=== PATIENT | female | born 1995 | race American Indian/Alaskan Native ===

== ENCOUNTER 2017-04-06 10:20 | Emergency (ER) | payer SELFPAY ==
[2017-04-06 10:40] VITALS: BP 116/70
--- NOTE | 2017-04-06 13:39 | Emergency Department Report ---
ED Headache HPI - General Chief Complaint: Headache Stated Complaint: HEADACHE, DIZZY, EYE PAIN Time Seen by Provider: 04/06/17 13:35 Source: patient - History of Present Illness Timing/Duration: 1 week, constant, decreasing Quality: mild Recent Head Trauma: no recent headache/trauma Modifying Factors: improves with: cold therapy, exposure to light Associated Symptoms: facial pain, nasal congestion, nasal drainage Allergies/Adverse Reactions: Allergies No Known Allergies Allergy (Unverified 04/06/17 10:35) Home Medications: Ambulatory Orders Amoxicillin [Amoxicillin TAB] 875 mg PO BID #14 tablet 04/06/17 Meclizine [Antivert] 25 mg PO TID PRN #30 tablet 04/06/17 ED Review of Systems ROS: Stated complaint: HEADACHE, DIZZY, EYE PAIN Other details as noted in HPI Comment: All other systems reviewed and negative Eyes: eye pain ENT: ear pain Respiratory: cough Gastrointestinal: denies: abdominal pain, diarrhea, constipation ED Past Medical Hx - Past Medical History Previous Medical History?: Yes Additional medical history: Vaginal dleivery 05-28-2016 - Surgical History Past Surgical History?: No - Social History Smoking Status: Never Smoker Substance Use Type: Alcohol, Non Opiate Pain - Medications Home Medications: Home Medications Medication Instructions Recorded Confirmed Last Taken Type Amoxicillin [Amoxicillin TAB] 875 mg PO BID #14 tablet 04/06/17 Unknown Rx Meclizine [Antivert] 25 mg PO TID PRN #30 tablet 04/06/17 Unknown Rx ED Physical Exam - General Limitations: No Limitations - Head Head exam: Present: atraumatic - Eye Eye exam: Present: normal appearance - ENT ENT exam: Present: other (RIGHT MUCOSAL SWELLING, ERYTHEMA) - Respiratory Respiratory exam: Present: normal lung sounds bilaterally - Cardiovascular Cardiovascular Exam: Present: regular rate, normal rhythm - GI/Abdominal GI/Abdominal exam: Present: soft - Extremities Exam Extremities exam: Present: normal inspection ED Course Vital Signs 04/06/17 10:35 Temperature 98.4 F Pulse Rate 93 H Respiratory 20 Rate Blood Pressure 116/70 O2 Sat by Pulse 99 Oximetry Critical care attestation.: If time is entered above; I have spent that time in minutes in the direct care of this critically ill patient, excluding procedure time. ED Disposition Clinical Impression: Sinusitis nasal Qualifiers: Sinusitis location: frontal Chronicity: acute Recurrence: non-recurrent Qualified Code(s): J01.10 - Acute frontal sinusitis, unspecified Disposition: DC-01 TO HOME OR SELFCARE Is pt being admited?: No Does the pt Need Aspirin: No Condition: Stable Prescriptions: Amoxicillin [Amoxicillin TAB] 875 mg PO BID #14 tablet Meclizine [Antivert] 25 mg PO TID PRN #30 tablet PRN Reason: Vertigo Referrals: PRIMARY CARE,MD [Primary Care Provider] - 3-5 Days
== END 2017-04-06 13:44 | disposition home or self-care (01) ==
LOC: ED 10:20
DX: J01.10 Acute frontal sinusitis, unspecified (principal)
CPT/HCPCS: 99282